=== PATIENT | male | born 1980 | race Caucasian/White ===

== ENCOUNTER 2016-08-29 14:46 | Emergency (ER) | payer MEDICAID ==
[~2016-08-29] VITALS: Ht 180.3 cm; Wt 104.8 kg
[2016-08-29 15:23] VITALS: BP 150/85
== END 2016-08-29 17:26 | disposition home or self-care (01) ==
LOC: ED 14:46
DX: S00.212A Abrasion of left eyelid and periocular area, initial encounter (principal); R03.0 Elevated blood-pressure reading, without diagnosis of hypertension; X58.XXXA Exposure to other specified factors, initial encounter; Y93.89 Activity, other specified; Y99.8 Other external cause status; Y92.89 Other specified places as the place of occurrence of the external cause
CPT/HCPCS: 90715